=== PATIENT | male | born 1970 | race Caucasian/White ===

== ENCOUNTER 2017-06-09 04:55 | Emergency (ER) | payer MEDICARE, MEDICAID ==
[~2017-06-09] VITALS: Ht 167.6 cm; Wt 63.0 kg
[2017-06-09] MEDS ORDERED: KETOROLAC 60MG/2ML VIAL IM ONE (07:15)
[2017-06-09 07:29] VITALS: BP 137/88
[2017-06-09] MEDS ORDERED: LIDOCAINE HCL 1% 20ML VIAL (Pyxis) INJ INFIL ONE (08:30)
== END 2017-06-09 09:16 | disposition home or self-care (01) ==
LOC: ER 05:11
DX: S61.412A Laceration without foreign body of left hand, initial encounter (principal); F17.200 Nicotine dependence, unspecified, uncomplicated; E11.9 Type 2 diabetes mellitus without complications; W45.8XXA Other foreign body or object entering through skin, initial encounter; Y93.01 Activity, walking, marching and hiking; Y92.89 Other specified places as the place of occurrence of the external cause; Y99.8 Other external cause status
CPT/HCPCS: 12002; 73130; 96372; 99284; J1885; J3490

== ENCOUNTER 2020-04-11 00:32 | Emergency (ER) | payer MEDICAID, MEDICARE ==
[~2020-04-11] VITALS: Ht 177.8 cm; Wt 85.0 kg
[2020-04-11 02:00] VITALS: BP 132/90
[2020-04-11] MEDS ORDERED: KETOROLAC 30MG/ML VIAL IM ONE (02:00)
== END 2020-04-11 03:20 | disposition left against medical advice (07) ==
LOC: ER 00:32
DX: M54.89 Other dorsalgia (principal); G40.909 Epilepsy, unspecified, not intractable, without status epilepticus
CPT/HCPCS: 99283

== ENCOUNTER 2020-08-07 03:16 | Emergency (ER) | payer MEDICARE ==
[~2020-08-07] VITALS: Ht 177.8 cm; Wt 64.0 kg
[2020-08-07 03:35] VITALS: BP 137/78
== END 2020-08-07 03:52 | disposition home or self-care (01) ==
LOC: ER 03:16
DX: G40.909 Epilepsy, unspecified, not intractable, without status epilepticus (principal); M54.9 Dorsalgia, unspecified; R03.0 Elevated blood-pressure reading, without diagnosis of hypertension; L97.529 Non-pressure chronic ulcer of other part of left foot with unspecified severity; L97.519 Non-pressure chronic ulcer of other part of right foot with unspecified severity
CPT/HCPCS: 82962; 93005; 99283

== ENCOUNTER 2020-10-17 20:54 | Emergency (ER) | payer MEDICARE ==
[~2020-10-17] VITALS: Ht 175.3 cm; Wt 69.0 kg
[2020-10-17 21:06] VITALS: BP 145/104
== END 2020-10-17 21:12 | disposition left against medical advice (07) ==
LOC: ER 20:54
DX: Z53.21 Procedure and treatment not carried out due to patient leaving prior to being seen by health care provider (principal)

== ENCOUNTER 2020-10-18 04:16 | Emergency (ER) | payer SELFPAY | END 2020-10-18 05:01 | disposition left against medical advice (07) | LOC: ER 04:16 | DX: M54.9 Dorsalgia, unspecified (principal); Z53.21 Procedure and treatment not carried out due to patient leaving prior to being seen by health care provider ==

== ENCOUNTER 2021-01-14 01:24 | Emergency (ER) | payer SELFPAY ==
[~2021-01-14] VITALS: Ht 170.2 cm; Wt 61.0 kg
[2021-01-14 02:25] LABS: BASOPHILS % 1.3 % (0.0-2.0); EOSINOPHILS % 1.5 % (0.0-5.0); HEMOGLOBIN. 10.7 g/dL (14.0-18.0); LYMPHOCYTES % 22.3 % (20.0-50.0); MEAN CORPUSCULAR HEMOGLOBIN 22.7 pg (28.0-32.0); MEAN CORPUSCULAR VOLUME 74.2 fL (80.0-94.0); MEAN PLATELET VOLUME 6.4 fl (7.4-10.4); MONOCYTES % 11.3 % (2.0-8.0); NEUTROPHILS % 63.6 % (40.0-76.0); PLATELET 510 x1000/uL (130-400); RED BLOOD CELL COUNT 4.71 mill/uL (4.7-6.1); RED CELL DISTRIBUTION WIDTH 16.5 % (11.6-14.6)
[2021-01-14 02:28] LABS: CHLORIDE 108 mEq/L (98-107)
[2021-01-14 02:32] LABS: ETHANOL BLOOD 97 mg/dL
[2021-01-14 03:32] LABS: CLARITY URINE CLEAR (CLEAR); COLOR URINE YELLOW (YELLOW); KETONES URINE NEGATIVE (NEGATIVE); LEUKOCYTE ESTERASE URINE NEGATIVE (NEGATIVE); NITRITE URINE NEGATIVE (NEGATIVE); OCCULT BLOOD URINE TRACE (NEGATIVE); PROTEIN URINE NEGATIVE (NEGATIVE); SPECIFIC GRAVITY URINE 1.011 (1.005-1.030); UROBILINOGEN URINE 0.2 E.U./dL (0.2-1.0)
[2021-01-14 04:10] LABS: *AMPHETAMINES SCREEN URINE PRESUMTIVE POSITIVE (NEGATIVE); *BARBITURATES SCREEN URINE NEGATIVE (NEGATIVE); *BENZODIAZEPINES SCREEN URINE NEGATIVE (NEGATIVE); *COCAINE SCREEN URINE NEGATIVE (NEGATIVE); METHADONE URINE SCREEN NEGATIVE (NEGATIVE); OPIATES URINE SCREEN NEGATIVE (NEGATIVE)
[2021-01-14 04:11] LABS: CANNABINOID URINE SCREEN PRESUMTIVE POSITIVE (NEGATIVE)
[2021-01-14 04:18] LABS: PHENCYCLIDINE URINE SCREEN NEGATIVE (NEGATIVE)
[2021-01-14 06:36] VITALS: BP 130/77
== END 2021-01-14 07:30 | disposition home or self-care (01) ==
LOC: ER 01:24
DX: R45.851 Suicidal ideations (principal)
CPT/HCPCS: 36415; 80053; 80305; 80307; 80320; 80329; 81003; 85025; 99283; Z7610; G0480

== ENCOUNTER 2021-10-03 23:58 | Emergency (ER) | payer MEDICARE, OTHER | END 2021-10-04 01:02 | disposition left against medical advice (07) | LOC: ER 23:58 | DX: Z53.21 Procedure and treatment not carried out due to patient leaving prior to being seen by health care provider (principal) ==

== ENCOUNTER 2023-05-03 19:14 | Emergency (ER) | payer MEDICARE ==
[~2023-05-03] VITALS: Ht 175.3 cm; Wt 74.0 kg
[2023-05-03 19:23] VITALS: BP 132/94; PULSE 98; RESP 18; TEMP 98.7; O2SAT 98
[2023-05-04] MEDS ORDERED: FAMO-135 MT (01:24)
== END 2023-05-03 21:00 | disposition left against medical advice (07) ==
LOC: ER 19:14
DX: Z53.21 Procedure and treatment not carried out due to patient leaving prior to being seen by health care provider (principal)
CPT/HCPCS: 99281

== ENCOUNTER 2023-05-03 21:44 | Emergency (ER) | payer MEDICARE ==
[~2023-05-03] VITALS: Ht 337.8 cm; Wt 72.0 kg
[2023-05-03 21:47] VITALS: BP 152/89; PULSE 84; RESP 18; TEMP 98.5; O2SAT 99
[2023-05-04] MEDS ORDERED: FAMO-135 MT (01:24)
== END 2023-05-03 22:30 | disposition left against medical advice (07) ==
LOC: ER 21:44
DX: R56.9 Unspecified convulsions (principal); F41.9 Anxiety disorder, unspecified; F32.9 Major depressive disorder, single episode, unspecified; E78.00 Pure hypercholesterolemia, unspecified; I10 Essential (primary) hypertension
CPT/HCPCS: 99283

== ENCOUNTER 2023-05-04 00:41 | Emergency (ER) | payer MEDICARE ==
[~2023-05-04] VITALS: Ht 177.8 cm; Wt 63.5 kg
[2023-05-04 01:08] VITALS: BP 157/96; PULSE 70; RESP 16; TEMP 97.8; O2SAT 100
[2023-05-04] MEDS ORDERED: MAGNESIUM/ALUMINUM HYDROXIDE/SIMETHICONE 30ML UDC PO STA (01:22)
[2023-05-04] MEDS ORDERED: FAMO-135 MT (01:24)
== END 2023-05-04 02:59 | disposition home or self-care (01) ==
LOC: ER 00:41
DX: R10.13 Epigastric pain (principal); I10 Essential (primary) hypertension; E78.00 Pure hypercholesterolemia, unspecified; F17.200 Nicotine dependence, unspecified, uncomplicated; Z88.8 Allergy status to other drugs, medicaments and biological substances; Z86.59 Personal history of other mental and behavioral disorders
CPT/HCPCS: 99282

== ENCOUNTER 2024-03-07 00:19 | Emergency (ER) | payer MEDICARE ==
[~2024-03-07] VITALS: Ht 167.6 cm; Wt 64.0 kg
[~2024-03-07 00:19] MED LIST: FAMO-135 MT
[2024-03-07 00:22] VITALS: BP 132/86; PULSE 86; RESP 16; TEMP 98.1; O2SAT 96
== END 2024-03-07 05:45 | disposition left against medical advice (07) ==
LOC: ER 00:58
DX: Z76.0 Encounter for issue of repeat prescription (principal); Z53.21 Procedure and treatment not carried out due to patient leaving prior to being seen by health care provider

== ENCOUNTER 2025-01-26 19:55 | Emergency (ER) | payer MEDICARE, MEDICAID ==
[~2025-01-26] VITALS: Ht 177.8 cm; Wt 65.0 kg
[2025-01-26 20:05] VITALS: BP 135/85; PULSE 98; RESP 12; TEMP 37.4; O2SAT 98
[2025-01-26] MEDS ORDERED: CITALOPRAM HYDROBROMIDE 10MG TABLET PO ONE (23:00)
== END 2025-01-26 23:08 | disposition left against medical advice (07) ==
LOC: ER 19:55
DX: R45.851 Suicidal ideations (principal); F32.A Depression, unspecified; Z86.59 Personal history of other mental and behavioral disorders; Z88.6 Allergy status to analgesic agent
CPT/HCPCS: 99283; 99285

== ENCOUNTER 2025-08-08 02:05 | Emergency (ER) | payer MEDICAID, MEDICARE ==
[~2025-08-08] VITALS: Ht 160 cm; Wt 60.0 kg
[2025-08-08 02:07] VITALS: TEMP 36.7; O2SAT 100
[2025-08-08] MEDS ORDERED: CITA20TA19 MT (02:22)
[2025-08-08] MEDS ORDERED: IBUP-1455 MT (02:22)
[2025-08-08 02:30] VITALS: BP 163/98; PULSE 85; RESP 14
[2025-08-08] MEDS: KETOROLAC 30MG/ML VIAL IM ONE (02:30)
== END 2025-08-08 04:37 | disposition home or self-care (01) ==
LOC: ER 03:28
DX: M54.50 Low back pain, unspecified (principal); Z59.00 Homelessness unspecified; Z76.0 Encounter for issue of repeat prescription; F32.A Depression, unspecified; F20.9 Schizophrenia, unspecified; Z79.899 Other long term (current) drug therapy; W01.0XXA Fall on same level from slipping, tripping and stumbling without subsequent striking against object, initial encounter; Y93.89 Activity, other specified; Y92.89 Other specified places as the place of occurrence of the external cause; Y99.8 Other external cause status
CPT/HCPCS: 99283; 96372; J1885